=== PATIENT | male | born 1975 | race Caucasian/White ===

== ENCOUNTER 2019-04-10 17:55 | Outpatient (REF) | payer OTHER, SELFPAY ==
[2019-04-10 18:54] LABS: Anion Gap 10.8 mmol/L (3-11); BUN 19 mg/dL (7-18); CO2 26.2 mmol/L (21.0-32.0); CREATININE 0.85 mg/dL (0.70-1.30); Calcium 9.2 mg/dL (8.5-10.1); Chloride 105 mmol/L (98-107); Glucose 96 mg/dL (70-100); Sodium 142 mmol/L (136-145)
== END 2019-04-10 18:15 ==
LOC: NCHCN 17:55
PROVIDERS: PCP Physician Assistant; Visit Provider Nurse Practitioner Family
DX: I10 Essential (primary) hypertension (principal)
CPT/HCPCS: 80048

== ENCOUNTER 2019-11-07 12:41 | Emergency (ER) | payer OTHER, SELFPAY ==
[2019-11-07 12:48] VITALS: BP 163/103; PULSE 72; TEMP 36.8; O2SAT 96
[2019-11-07 13:29] LABS: Bilirubin Negative (Negative); Blood Trace-intact (Negative); Clarity Clear (Clear); Glucose Negative (Negative); Ketones Negative (Negative); Leukocyte Esterase Negative (Negative); Nitrite Negative (Negative); Urobilinogen 0.2 EU/dL (Up TO 0.2); pH 6.5 (5-8)
[2019-11-07 13:44] LABS: Epithelial Cells Rare HPF (Negative); RBC 0-2 HPF (0-2); WBC Negative HPF (0-5)
[2019-11-07 13:45] LABS: Bacteria Negative HPF (Negative); C & S Indicated? No; Casts Negative LPF (Negative); Crystals Negative HPF (Negative); Mucus Negative (Negative)
--- NOTE | 2019-11-07 13:54 | ED.GENADUL_ITS ---
Discharge Plan Disposition Patient Disposition: HOME Condition: Stable Discharge Details Chief Complaint: Nk/Back Pain Clinical Impression: Back pain Primary Care Provider: Marques Nelson ED Provider: Diomedes King Home Meds and New Rx's Prescriptions: No Action indomethacin 50 mg Capsule 50 mg PO BID PRNRF: 0 ibuprofen 600 mg Tablet 600 mg PO Q6H PRNRF: 0 losartan 100 mg Tablet 100 mg PO DAILY RF: 0 Discharge Instructions Instructions: Back Pain (ED) Additional Instructions: [id number] Tylenol and/or Motrin as directed for discomfort. Gentle stretching as tolerated. Cool and/or warm compresses every 2 hours for 20 minutes. Please watch for new or worsening symptoms and return to the ER for any concerns. I do strongly recommend talking with your primary care provider about outpatient imaging such as MRI, physical therapy, and referral to specialist if symptoms persist. Stand Alone Forms: Work Release Discharge Data Discharge Date/Time-TO BE ENTERED AT DEPARTURE: 11/07/19 14:20 Medical Decision Making 44-year-old gentleman with right-sided back pain since May 2019, worsens with movement, lifting or repetitive motion. Seen by his primary care provider on Tuesday, given a muscle relaxer without relief. He has never had any imaging for this. Examination is certainly consistent with musculoskeletal discomfort. There is no midline point tenderness, no recent trauma. Emergent x-ray imaging likely of little value. He has no radicular pain. We discussed more conservative therapy would be rest, gentle stretching, cool and/or warm compresses, [id number] Tylenol and/or Motrin. Outpatient physical therapy referral to his primary care provider, weight loss, and if symptoms persist outpatient MRI and/or referral to back specialist very well may be indicated. Patient is concerned that he has not had imaging thus far. I did explain to him that x-rays show bone but not disc space or soft tissue very well. Without trauma or midline point tenderness, x-ray likely little value. After this explanation he is comfortable with this plan and will talk with his primary care provider regarding outpatient MRI for further evaluation. Urinalysis obtained per protocol prior to my evaluation. Low suspicion for renal etiology. Lab Data Lab results reviewed: Yes I reviewed the patient's lab results. Lab results narrative: Laboratory Tests Range/Units 11/07/19 13:00 Urine Color (Yellow) Yellow Urine Clarity (Clear) Clear Urine pH (5-8) 6.5 Ur Specific [place] (1.005-1.025) 1.010 Urine Protein (Negative) mg/dL Negative Urine Ketones (Negative) mg/dL Negative Urine Blood (Negative) Trace-intact H Urine Nitrite (Negative) Negative Urine Bilirubin (Negative) Negative Urine Urobilinogen (Up TO 0.2) EU/dL 0.2 Ur Leukocyte Esterase (Negative) Negative Urine RBC (0-2) HPF 0-2 Urine WBC (0-5) HPF Negative Ur Epithelial Cells (Negative) HPF Rare Urine Crystals (Negative) HPF Negative Urine Bacteria (Negative) HPF Negative Urine Casts (Negative) LPF Negative Urine Mucus (Negative) Negative Ur Culture Indicated? No Urine Glucose (Negative) mg/dL Negative HPI General Mode of arrival: ambulatory . Date/Time Provider Initiated Documentation: 11/07/19 12:51 . Limitations to Documentation: no limitations . Information obtained by: patient and family . HPI Narrative: This is a 44-year-old gentleman who reports right sided chronic back pain that began in May. No obvious trauma although does do repetitive motion at work. Reports this episode began over the weekend although again no obvious trauma. He was seen by his primary care provider on Tuesday, given a muscle relaxer that has not helped. He is still using [id number] Motrin with no relief. He reports that there was no imaging done and he just simply wants to know what is going on. There is no radiation of his right back pain to his chest, abdomen, pelvis, down either leg. He denies any numbness, tingling, weakness. Denies chest pain or abdominal pain, nausea, vomiting. Denies any incontinence, bowel or bladder symptoms. Reports that the pain is moderate at rest but more severe with movement. He reports that the pain has never gone away completely since May however he does have days that are better or worse than others. Denies any hematuria, dysuria, pain in his testicles. Denies history of renal stone. Related Data Home Medications Medication Instructions Recorded Confirmed ibuprofen 600 mg PO Q6H PRN 11/07/19 11/07/19 indomethacin 50 mg PO BID PRN 11/07/19 11/07/19 losartan 100 mg PO DAILY 11/07/19 11/07/19 Allergies Allergy/AdvReac Type Severity Reaction Status Date / Time amoxicillin [From Augmentin] Allergy Unverified 11/07/19 12:52 clavulanic acid Allergy Unverified 11/07/19 12:52 [From Augmentin] General Stated Complaint: Nk/Back Pain SNOW: 4 Review of Systems Constitutional Constitutional: Denies fatigue, Denies fever(s) and Denies headache(s) ENT Ears, Nose, Mouth, and Throat: Denies headache(s) Cardiovascular Cardiovascular: Denies chest pain and Denies dyspnea Respiratory Respiratory: Denies cough and Denies dyspnea Gastrointestinal Gastrointestinal: Denies abdominal pain, Denies diarrhea, Denies nausea and [place] es vomiting Genitourinary Genitourinary: Denies hematuria, Denies difficulty urinating, Denies genital pain, Denies dysuria and Denies urinary incontinence Musculoskeletal Musculoskeletal: Reports back pain, Denies numbness and Denies tingling Integumentary/Breasts Skin/Breast: Denies rash Neurologic Neurologic: Denies headache(s), Denies numbness and Denies tingling Endocrine Endocrine: Denies fatigue [facility] Social History Smoking/Tobacco Use Status: Never Alcohol Intake: current Alcohol Intake frequency: a few times a month Drug use: Never Substance use type: does not use Do you feel safe at home: Yes Do you feel safe in your relationship?: Yes Exam Const General: cooperative, healthy appearing, comfortable and no acute distress Orientation: alert and awake [facility] Head: normal to inspection, normocephalic and atraumatic Mouth: moist mucous membranes Eyes Conjunctivae: conjunctivae normal Neck Neck: normal visual inspection, full ROM, trachea midline, supple and nontender Resp Effort & Inspection: normal respiratory effort and able to speak in complete sentences Auscultation: clear to auscultation bilaterally Cardio Rate: regular rate Rhythm: regular rhythm GI Inspection: normal to inspection Palpation: soft, not firm, no guarding and nontender Back/Spine/Pelvis Back: no CVA tenderness, No erythema and No warmth Cervical Spine: normal cervical lordosis Thoracic/Lumbar Spine: thoracic and lumbar spine normal to inspection, thoraco- lumbar ROM normal, pain with thoraco-lumbar ROM, paraspinal tenderness (Right thoracic region), No thoraco-lumbar ROM limited and No thoracic spinal tenderness (No midline point tenderness) Skin General skin exam: no rashes or lesions noted Neuro General: patient alert, patient awake, patient oriented x3, moves all extremities and no focal motor deficits Gait: normal gait Motor: muscle tone normal throughout and strength 5/5 throughout Sensory Exam: no sensory deficits noted Extrem General: normal to inspection, full ROM and capillary refill normal Psych Appearance: grossly normal Mental Status: mental status grossly normal Course Vital Signs Vital signs: Vital Signs Temperature 36.8 C 11/07/19 12:48 Pulse 72 11/07/19 12:48 Blood Pressure 163/103 H 11/07/19 12:48 Pulse Oximetry 96 11/07/19 12:48 Temperature 36.8 C 11/07/19 12:48 Temperature Source Temporal Artery Scan 11/07/19 12:48 Pulse 72 11/07/19 12:48 Respiratory Effort Non-Labored 11/07/19 12:51 Blood Pressure 163/103 H 11/07/19 12:48 Blood Pressure Position Sitting 11/07/19 12:48 Pulse Oximetry 96 11/07/19 12:48 Oxygen Delivery Method Room Air 11/07/19 12:48 Oxygen Flow Rate 0 11/07/19 12:48 Pain Level 9 11/07/19 12:48 Lab/Test Results Lab/Test Results: Laboratory Tests Range/Units 11/07/19 13:00 Urine Color (Yellow) Yellow Urine Clarity (Clear) Clear Urine pH (5-8) 6.5 Ur Specific [place] (1.005-1.025) 1.010 Urine Protein (Negative) mg/dL Negative Urine Ketones (Negative) mg/dL Negative Urine Blood (Negative) Trace-intact H Urine Nitrite (Negative) Negative Urine Bilirubin (Negative) Negative Urine Urobilinogen (Up TO 0.2) EU/dL 0.2 Ur Leukocyte Esterase (Negative) Negative Urine RBC (0-2) HPF 0-2 Urine WBC (0-5) HPF Negative Ur Epithelial Cells (Negative) HPF Rare Urine Crystals (Negative) HPF Negative Urine Bacteria (Negative) HPF Negative Urine Casts (Negative) LPF Negative Urine Mucus (Negative) Negative Ur Culture Indicated? No Urine Glucose (Negative) mg/dL Negative
== END 2019-11-07 14:20 | disposition home or self-care (01) ==
PROVIDERS: Emergency Provider Physician Assistant; PCP Physician Assistant
DX: M54.5 Low back pain (principal); G89.29 Other chronic pain
CPT/HCPCS: 99282; 81003; 81015

== ENCOUNTER 2020-10-17 10:52 | Outpatient (REF) | payer OTHER, SELFPAY ==
[2020-10-17 15:37] LABS: ALT 90 U/L (16-63); AST 47 U/L (15-37); Albumin 4.1 g/dL (3.4-5.0); Alkaline Phosphatase 100 U/L (46-116); Anion Gap 7.2 mmol/L (3-11); BUN 19 mg/dL (7-18); Bilirubin, Total 0.4 mg/dL (0.2-1.0); CO2 27.8 mmol/L (21.0-32.0); CREATININE 0.8 mg/dL (0.70-1.30); Calcium 9.3 mg/dL (8.5-10.1); Chloride 104 mmol/L (98-107); Glucose 119 mg/dL (74-106); LDL CHOLESTEROL 114 mg/dL (<100); Sodium 139 mmol/L (136-145)
[2020-10-17 15:39] LABS: Hemoglobin A1C 6.3 % (<5.7)
== END 2020-10-17 10:53 | disposition home or self-care (01) ==
LOC: NCHCN 10:52
PROVIDERS: PCP Physician Assistant; Visit Provider Physician Assistant
DX: R73.03 Prediabetes (principal); I10 Essential (primary) hypertension; E78.5 Hyperlipidemia, unspecified; Z68.43 Body mass index [BMI] 50.0-59.9, adult
CPT/HCPCS: 80053; 83721; 83036

== ENCOUNTER 2021-04-15 18:23 | Outpatient (REF) | payer OTHER, SELFPAY ==
[2021-04-15 20:24] LABS: Iron 53 ug/dL (65-175); Total Iron Binding Capacity 308 ug/dL (250-450); Transferrin Sat 17 % (20-55)
[2021-04-15 20:25] LABS: ALT 87 U/L (16-63); AST 49 U/L (15-37); Albumin 4.3 g/dL (3.4-5.0); Alkaline Phosphatase 89 U/L (46-116); Bilirubin, Direct 0.1 mg/dL (0.0-0.2); Bilirubin, Total 0.5 mg/dL (0.2-1.0); Total Protein 7.4 g/dL (6.4-8.2); Uric Acid 4.8 mg/dL (3.5-7.2)
[2021-04-17 11:29] LABS: Hepatitis C Ab w Rflx HCV PCR Negative (Negative)
== END 2021-04-15 18:24 | disposition home or self-care (01) ==
LOC: NCHCN 18:23
PROVIDERS: PCP Physician Assistant; Visit Provider Internal Medicine
DX: R73.03 Prediabetes (principal); Z11.59 Encounter for screening for other viral diseases
CPT/HCPCS: 80076; 86803; 83540; 83550; 84550

== ENCOUNTER 2022-06-08 21:42 | Outpatient (REF) | payer OTHER, SELFPAY ==
[2022-06-08 20:34] LABS: ALT 79 U/L (16-63); AST 30 U/L (15-37); Alkaline Phosphatase 109 U/L (46-116); Anion Gap 7.7 mmol/L (3-11); BUN 19 mg/dL (7-18); Bilirubin, Total 0.4 mg/dL (0.2-1.0); CO2 27.3 mmol/L (21.0-32.0); CREATININE 0.9 mg/dL (0.70-1.30); Calcium 9.3 mg/dL (8.5-10.1); Chloride 101 mmol/L (98-107); Estimated GFR 107.33 (mL/min/1.73m2); Glucose 144 mg/dL (74-106); Potassium 4.2 mmol/L (3.5-5.1); Sodium 136 mmol/L (136-145); Total Protein 7.6 g/dL (6.4-8.2)
== END 2022-06-08 21:43 | disposition home or self-care (01) ==
LOC: NCHCN 21:42
PROVIDERS: PCP Physician Assistant; Visit Provider Physician Assistant
DX: I10 Essential (primary) hypertension (principal); R73.03 Prediabetes; K76.0 Fatty (change of) liver, not elsewhere classified
CPT/HCPCS: 80053; 83036

== ENCOUNTER 2023-01-03 16:08 | Outpatient (CLI) | payer OTHER, SELFPAY ==
--- NOTE | 2023-01-03 14:45 | DI.RAD_ITS ---
Exam(s) XR HIP PELVIS ADULT BL EXAM: XR HIP PELVIS ADULT BL CLINICAL HISTORY: pain. TECHNIQUE: 2D digital imaging was performed. Five views. COMPARISON: No exams were available for comparison FINDINGS: BONES: No acute fracture is present. No bony destructive lesion is seen. JOINTS: No dislocation present. Right hip joint space is maintained. Severe narrowing and prominent periarticular spurring involving the left hip. Slight flattening of the superior femoral head. SI j oints and pubic symphysis unremarkable. SOFT TISSUE: Normal. IMPRESSION: Severe degenerative changes of the left hip. Right hip appears normal. DATA REPOSITORY: RADIATION DOSE DELIVERED:
== END 2023-01-03 16:09 | disposition home or self-care (01) ==
LOC: DIORS 16:08
PROVIDERS: PCP Physician Assistant; Referring Provider Physician Assistant; Visit Provider Physician Assistant
DX: M16.12 Unilateral primary osteoarthritis, left hip; M25.551 Pain in right hip
CPT/HCPCS: 73521

== ENCOUNTER 2023-03-31 02:33 | Outpatient (CLI) | payer OTHER, SELFPAY ==
[2023-03-31 11:51] LABS: HCT 47.7 % (40.0-50.0); HGB 15.9 g/dL (13.5-17.5); MCH 29.3 pg (27.0-33.0); MCHC 33.3 % (32.0-36.0); MCV 88 fL (80-95); MPV 9.8 fL (8.0-11.0); Platelet Count 217 10^3/uL (130-400); RBC 5.42 10^6/uL (4.36-5.78); RDW 12.8 % (11.8-14.1); RDW-SD 41.1 fL; WBC 7.56 10^3/uL (4.4-10.8)
[2023-03-31 12:02] LABS: Anion Gap 8.9 mmol/L (3-11); BUN 14 mg/dL (7-18); CO2 29.1 mmol/L (21.0-32.0); CREATININE 0.7 mg/dL (0.70-1.30); Calcium 9.7 mg/dL (8.5-10.1); Chloride 103 mmol/L (98-107); Glucose 99 mg/dL (74-106); Potassium 4.2 mmol/L (3.5-5.1); Sodium 141 mmol/L (136-145)
== END 2023-03-31 02:34 | disposition home or self-care (01) ==
LOC: LBO 02:34 → LBN 11:41
PROVIDERS: PCP Physician Assistant; Visit Provider Student in an Organized Health Care Education/Training Program
DX: M25.552 Pain in left hip (principal); M16.12 Unilateral primary osteoarthritis, left hip; Z01.818 Encounter for other preprocedural examination; Z01.812 Encounter for preprocedural laboratory examination
CPT/HCPCS: 80048; 85027

== ENCOUNTER 2023-04-06 05:50 | Day surgery (SDC) | payer OTHER, SELFPAY ==
[2023-04-06] VITALS (9 sets, daily range): BP systolic 95–128; BP diastolic 50–77; PULSE 55–74; RESP 16–20; TEMP 36.3–36.6; O2SAT 96–98; BMI 45.3
[2023-04-06] MEDS: Celecoxib 200 MG CAP 400 MG PO (06:35)
[2023-04-06] MEDS: Acetaminophen 500 MG TAB 1000 MG PO (06:35)
[2023-04-06] MEDS: Lactated Ringers 1,000 ML 80 ML IV (06:35)
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
--- NOTE | 2023-04-06 07:00 | DI.RAD_ITS ---
Exam(s) XR HIP LT IN OR EXAM: XR HIP LT IN OR CLINICAL HISTORY: total hip. TECHNIQUE: 2D and realtime digital imaging was performed. COMPARISON: CR XR HIP PELVIS ADULT BL from 01/03/2023 FINDINGS: A hard copy image shows placement of a left hip prosthesis. The alignment appears satisfactory. Please see procedure note for details. Fluoro time: 39.4seconds RADIATION DOSE DELIVERED: Ka,r=12.2 mGy
[2023-04-06] MEDS: ceFAZolin 3,000 MG in Normal Saline 100 ML 200 MG IV (07:56)
[2023-04-06] MEDS: fentaNYL 100 MCG/2 ML VIAL IVP ×2 (10:28→10:40)
--- NOTE | 2023-04-06 10:39 | W.ANESPOSTOP ---
Postoperative Evaluation Date, Time and Location Date Performed: 04/06/23 Time Performed: 10:39 Patient Location: PACU Vital Signs Most Recent Imported Vital Signs: Most Recent Vital Signs Temp Pulse Resp BP Pulse Ox 36.5 C 74 19 105/68 96 04/06/23 10:07 04/06/23 10:17 04/06/23 10:17 04/06/23 10:17 04/06/23 10:17 Pain Score Most Recent Pain Score: Most Recent Pain Score Pain Level 8 04/06/23 10:17 Assessment Mental Status: Awake (Alert & Oriented to Patient Baseline) Airway and Respiratory Function: Patent airway with normal (patient baseline) respiratory exam Cardiovascular Function: Hemodynamically Stable Hydration Status: Adequately Hydrated Nausea & Vomiting: No Nausea or Vomiting Pain: Pain is Moderate or Severe (VSS low normal and appropriate. ) Postoperative Pain Management: Pain being addressed with medication Peripheral Nerve Block: Patient did not receive a nerve block
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
--- NOTE | 2023-04-06 12:45 | PDOC.DSDIS_ITS ---
Date of service: 04/06/23 Time of Service: 12:45 Discharge Plan Disposition Patient Disposition: Home Condition: Good Discharge Details Reason For Visit: L THR Attending Provider: Esdras Nair Primary Care Provider: Angeles Gooden Home Meds and New Rx's Prescriptions: New celecoxib 200 mg capsule 200 mg PO BID Qty: 60 0RF aspirin 81 mg tablet,delayed release (DR/EC) 81 mg PO BID Qty: 60 0RF acetaminophen 500 mg tablet 1,000 mg PO TID Qty: 90 3RF pantoprazole 40 mg tablet,delayed release (DR/EC) 40 mg PO DAILY Qty: 30 0RF dexamethasone 4 mg tablet 4 mg PO DAILY Qty: 2 0RF oxycodone 5 mg tablet 5 mg PO Q4H MDD 6 tabs PRN (Reason: pain) Qty: 20 0RF Continued allopurinol 300 mg tablet 300 mg PO DAILY rosuvastatin [Crestor] 10 mg tablet 10 mg PO DAILY indomethacin 50 mg Capsule 50 mg PO BID PRN losartan 100 mg Tablet 100 mg PO DAILY Discontinued aspirin [Adult Aspirin Regimen] 81 mg tablet,delayed release (DR/EC) 81 mg PO DAILY ibuprofen 600 mg Tablet 600 mg PO Q6H PRN Discharge Instructions Additional Instructions: Total Hip Discharge Instructions Activity: The most important activity is to walk. You should try to take short walks a few times a day. You have no restrictions on movement or positioning, but do not try to force what you do. You will find some stiffness and weakness with hip flexion (lifting your knee). Do not try to strengthen this too early, continue to practice walking and stairs and this will come. - Outpatient physical therapy can be helpful to help return you to a normal gait and improve your flexibility and strength. This can start around 2 weeks. For some patients, it?s not necessary. Usually this is determined at the time of discharge or at the first post-operative visit. - You should wear the RUSSELL hose on both legs for 2 weeks. Dressing: Keep the surgical dressing in place for at least one week. After the first week it may be removed and replace with light gauze and tape or nothing. It may get wet after 3 days but avoid soaking the dressing. If it gets wet, just lightly pat dry. It is important to always keep some gauze between skin folds, especially when you are sitting. Spend some time with the wound exposed when you are lying flat as the incision does wrinkle onto itself. Medications: - You should take Tylenol and an anti-inflammatory Celebrex as your primary pain control medications. If the Celebrex is too expensive or not covered, please call the office for another alternative (Advil/Ibuprofen or Naproxen/Aleve). - You have been prescribed a stronger pain medication Oxycodone for breakthrough pain, take as needed as prescribed. - You have also been prescribed a stomach acid reduction agent Pantoprozole to help reduce stomach acid and reflux. - You have also been prescribed Decadron to help with post-operative nausea and pain. You will take this for two days starting tomorrow. - You will be taking Aspirin 81mg twice a day for DVT prevention unless instructed otherwise. - If you have constipation you should take Colace or Miralax (both [id number]). It takes most people 3-4 days to have a bowel movement. Follow-up: 2 weeks If you have any acute concerns or questions, please do not hesitate to contact the office at [phone]. You may contact Dr. Nair with any questions after hours through the hospital at [phone] or on his cell phone at [phone]. Stand Alone Forms: Anesthesia Discharge Inst., Vani Rawls (U) Referrals: Esdras Nair MD [ [facility] STAFF PHYSICIAN] - 04/21/23 11:00 am Equipment/Supplies: Walker Activity:: Activity as Tolerated Shower/Bathe:: 72 hours Diet:: As Tolerated Discharge Orders Discharge Orders: Discharge Order (Routine); Ordered 04/06/23 Ordered By: Esdras Nair
--- NOTE | 2023-04-06 17:01 | ROE_ITS ---
Date of service: 04/06/23 Time of Service: 10:15 Operative Note Operative Note DATE OF PROCEDURE: 04/06/23 PRE-OP DIAGNOSIS: Post-Traumatic Left Hip Osteoarthritis POST-OP DIAGNOSIS: same PROCEDURE: Left Anterior Total Hip Arthroplasty with Intraoperative Navigation SURGEON: Esdras Nair TOWBOAT CAPTAIN: Alexey Rosario ANESTHESIA TYPE: Spinal Refer to Anesthesia Record ESTIMATED BLOOD LOSS: 1,050 PATHOLOGY: none sent TOURNIQUET TIME: 0 COMPLICATIONS: None Patient was transported to: PACU Patient's condition: stable Implants: 1. Depuy [place] Acetabular Component, 54mm 2. Depuy Acetabular Liner, [id number] 3. Depuy Actis Standard Collared Femoral Stem, Size 4 4. Depuy Altrx Ceramic Femoral Head, Size 36+1.5mm Indications: I have seen Adolph in clinic for symptoms of hip arthritis, confirmed with radiographic findings. He has exhausted nonoperative methods and was having significant limitations in daily function and desired better function and less pain. I discussed the technical details of a hip replacement. I explained the risks of the procedure to include, but not limited to, bleeding, infection, pain, stiffness, fracture, damage to nerves and vessels, damage to muscles and tendons, loosening, instability, leg length inequality, need for repeat procedure, blood clot and cardiopulmonary demise. Despite these risks, Adolph elected to proceed. Findings: There was significant signs of arthritis throughout the hip. Large osteophytes are present surrounding the entirety of the femoral head neck as well as the acetabulum. There was 1 large loose piece of bone as well. Procedure Description: Adolph was greeted in the preoperative holding area where the correct side was identified and marked. The consent was reviewed with the patient and signed. The history and physical was updated. All questions were answered. He was taken back to the operating room. A spinal anesthestic was then administered. The feet were wrapped with cast padding and Coban and then placed into the boot liners and then into the boots. Care was taken to protect the skin and make sure the heels were fully down and the boots were stable. The patient was then positioned onto the HANA table. Both legs were held in a neutral position. SCDs were applied. The patient was then slid down onto a peroneal post. Prophylactic antibiotics in the form of Cefazolin were administered. 1g of Tranxemic Acid was given intravenously within 30 minutes of incision. The left leg was then prepped with Chloraprep and draped in a standard fashion. A second prep with Chloraprep was performed prior to placement of a shower-curtain type drape with Iodine impregnated skin protection. A timeout to confirm correct identity, side and site, procedure, allergies, anesthesia, and medical concerns was performed. An obliquely oriented incision was made starting lateral to the ASIS and running distal over the Tensor Fascia Jeri (TFL) muscle belly toward the fibular head, approximately 10cm. The skin and soft tissue was dissected sharply, through Symone?s fascia, and to the fascia of the TFL. With the fascia and superior border of the IT band identified, the fascia was incised with a new knife just above any perforators from the IT band. The TFL muscle belly was bluntly dissected away from the fascia and moved laterally. The fat between TFL and rectus was identified to ensure the dissection was not within the TFL. Blunt dissection created space between abductors and the capsule and retractor was placed over the lateral femoral neck. The fibers of the rectus femoris tendon were identified and these were freed from the anterior capsule. A second cobra retractor was placed around the medial femoral neck. The TFL was further retracted laterally to show the deep fascia. Careful dissection through this layer identified three main crossing vessels of the lateral femoral circumflex. These were cauterized in multiple locations and then cut without any noticeable bleeding. The TFL was further released bluntly from the deep fascia to expose anterior hip capsule and fat The Jay orthopaedic retractor was then placed beneath the TFL and against sartorius and medial soft tissues to protect and retract the soft tissues. A T-capsulotomy was then performed starting at the superior lateral acetabulum and moving distally to the intertrochanteric ridge. These capsular flaps were tagged with a No. 1 Ethibond and elevated from within. The capsular flaps were released to the shoulder of the lateral neck and to the lesser trochanter to give excellent visualization of the proximal femur. However, normal anatomy was obscured due to the multiple osteophytes surrounding the femoral head neck junction. A neck osteotomy was performed using an oscillating saw based on preoperative templates. This cut started in the shoulder and of the lateral neck and exited medially. The saw was at all times directed medially to avoid injury to the gr eater trochanter. Gross traction was applied to the leg and the osteotomy opened. The femoral head was removed with a corkscrew, making sure to protect the TFL on its exit. Traction was released after head removal. This was measured on the back table to determine the starting reamer size. Portions of the rectus obscuring visualization were minimally elevated off the superior acetabulum. An anterior retractor was placed over the anterior wall between capsule and labrum and attached to the Gripper retraction system. The femur was rotated to 90 degrees and medial capsule was fully released until the lesser trochanter was palpable and visible; the femur was returned to 30 degrees. A posterior retractor was placed similarly between capsule and labrum. This provided excellent visualization. The contents of the cotyloid fossa were removed with electrocautery and the labrum was removed with a knife. There was a notable floor osteophyte. There was significant chondromalacia of the s uperior acetabulum. Acetabular reaming began with a 48mm reamer. This first reaming was directed anterior to posterior and medial to get down to the true floor. This was inspected and reamed until the true floor was reached. The anterior retractor was then released and entry and exit was provided by traction on the capsular flaps. I then reamed sequentially up to a 54mm reamer where good fit was obtained. The larger reamers were oriented based on anatomical reference of the anterior and lateral albarran to ensure proper abduction and anteversion. Positioning and size was confirmed with the fluoroscopy. A 54mm Depuy [place] acetabular component was selected. The acetabulum was reamed around the periphery with the selected acetabular size to prevent a rim fit. The deep tissues were irrigated. The acetabular component was then impacted in a position of about 40-45 degrees of abduction and 15-20 degrees of anteversion, using the patient?s anatomy as the ultimate landmark. Fluoroscopy was used to confirm this. There was excellent data architect manager of the acetabular component and the inserting handle was removed. The acetabular liner, Depuy [id number] polyethylene liner, was inserted and lined up with the tines of the acetabular component. There was no soft tissue interposition. The liner was then impacted into position and confirmed to be well-seated. A portion of the venecia-articular cocktail was then injected around the acetabulum into the capsule and periosteum. This cocktail consisted of 123mg of Ropivacaine, 0.25mg of Epinephrine, 0.04mg of Clonidine, and 15mg of Ketorolac, diluted to 50cc. The leg was rotated to 120 degrees. Any remaining medial capsule was released until the lesser trochanter was easily palpable. A retractor was placed medially. The lateral capsule was further released into the shoulder to allow access to the greater trochanter. A Aleman retractor was placed over the greater trochanter which allowed the trochanter to flip in front of the capsule for excellent exposure. The leg was brought down into maximal extension and 20 degrees of adduction while ensuring there was no impingement on the acetabulum. Any remnant capsule within the trochanter was released. Piriformis and obturator externis were identified and protected. There was excellent access to the proximal femur. The lateral neck remnant was removed with a rongeur. A blunt canal probe was used to identify the canal and trajectory for later broaching. A box osteotome initiated the broach course. A small curved rasp and a curved curette were used to work laterally. Broaching then began with a starter Actis broach. This was inserted manually around the trochanter and into the canal before mallet blows. The broach was seated to a few millimeters below the cut level based on the neck cut and the preoperative template. Sequential broaching was continued with the Tappxse pneumatic broaching device until a tight fit was obtained with good rotational control of the femur. A trial standard neck was inserted along with a +5 trial head. The leg was brought out of extension and adduction and then reduced with traction and internal rotation. The leg was stable anteriorly in a position of 30 degrees of extension and 90 degrees of external rotation. Fluoroscopy was used to ensure there was no fracture and the stem was seated well. Leg lengths were checked with an AP pelvis and pelvic reference points. [employer] navigation system was used to confirm appropriate positioning and leg length and offset. Once content with the desired offset and leg lengths, the leg was brought back into extension, external rotation and adduction. The periosteum and surrounding tissue was injected with remaining portion of the venecia-articular cocktail. The proximal femur was irrigated as well as the deep tissues. The [employer] standard collared stem, size 4, was then manually inserted into the proximal femur making sure to control rotation. It was then malleted into position with light blows, giving breaks to allow bone expansion and decrease risk of fracture. The selected Depuy Altrx Ceramic Head, size 36+5mm, was then placed onto the clean and dry trunnion and secured with impaction onto the tapered fit. The leg was brought back out of extension and adduction and reduced with traction and internal rotation. Stability was confirmed with no shuck at 90 degrees of external rotation and 30 degrees of extension. No impingement through range of motion arc. Final x-ray images were obtained with fluoroscopy to confirm adequate positioning and no intraoperative fracture. The deep tissues were thoroughly irrigated with Surgiphor, betadine solution. This was allowed to sit in the wound for 3 minutes before being thoroughly irrigated out with normal saline. The capsule was then reapproximated with the previously placed Ethibond sutures. The TFL fascia was finally closed with a No. 2 Stratafix, barbed suture. Deep tissues were then reapproximated with 0 Vicryl and a running 2-0 Vicryl. The skin was closed with a running 4-0 Monocryl in a subcuticular fashion. This was reinforced with skin glue. A Mepilex silver dressing was applied. At the end of the case, all counts were correct. Adolph was transferred to the hospital bed without difficulty and suffering no apparent complication. He has a good prognosis. Physical therapy will start today and without restrictions, weight-bearing as tolerated. Aspirin 81mg BID will be used for DVT prophylaxis.
== END 2023-04-06 13:00 | disposition home or self-care (01) ==
PROVIDERS: PCP Physician Assistant; Visit Provider Student in an Organized Health Care Education/Training Program
PROC: (CPT 27130; principal; 2023-04-06 07:30)
DX: E11.9 Type 2 diabetes mellitus without complications; G47.33 Obstructive sleep apnea (adult) (pediatric); M16.32 Unilateral osteoarthritis resulting from hip dysplasia, left hip
CPT/HCPCS: 27130; 20985; 97161; 97530; 73501; J0690; J2250; J2405; J3010

== ENCOUNTER 2023-04-21 13:20 | Outpatient (CLI) | payer OTHER, SELFPAY ==
--- NOTE | 2023-04-21 10:45 | DI.RAD_ITS ---
Exam(s) XR HIP LT COMPLETE AP PELVIS EXAM: XR HIP LT COMPLETE AP PELVIS CLINICAL HISTORY: 1ST POST OP L YAIR. TECHNIQUE: 2D digital imaging was performed. Three images were obtained. AP pelvis and lateral view s were obtained. COMPARISON: XA XR HIP LT IN OR from 04/06/2023 FINDINGS: BONES: There are stable post operative changes present. No fracture or dislocation. JOINTS: The orthopedic hardware is in good position. No evidence of hardware loosening. SOFT TISSUE: Normal. IMPRESSION: Stable postoperative changes of a left total hip replacement. DATA REPOSITORY: RADIATION DOSE DELIVERED:
== END 2023-04-21 13:21 | disposition home or self-care (01) ==
LOC: DIORS 13:20
PROVIDERS: PCP Physician Assistant; Visit Provider Student in an Organized Health Care Education/Training Program
DX: Z96.642 Presence of left artificial hip joint (principal); Z47.1 Aftercare following joint replacement surgery
CPT/HCPCS: 73502

== ENCOUNTER 2023-06-08 16:33 | Outpatient (REF) | payer OTHER, SELFPAY ==
[2023-06-08 20:04] LABS: ALT 41 U/L (16-63); AST 29 U/L (15-37); Alkaline Phosphatase 103 U/L (46-116); Bilirubin, Direct 0.1 mg/dL (0.0-0.2); Bilirubin, Total 0.5 mg/dL (0.2-1.0); Total Protein 7.1 g/dL (6.4-8.2); Uric Acid 4.6 mg/dL (3.5-7.2)
== END 2023-06-08 16:34 | disposition home or self-care (01) ==
LOC: NCHCN 16:33
PROVIDERS: PCP Physician Assistant; Visit Provider Physician Assistant
DX: K76.0 Fatty (change of) liver, not elsewhere classified (principal); M10.9 Gout, unspecified
CPT/HCPCS: 80076; 84550

== ENCOUNTER 2024-04-06 11:34 | Outpatient (CLI) | payer OTHER, SELFPAY ==
--- NOTE | 2024-04-06 11:00 | DI.RAD_ITS ---
Exam(s) XR HIP LT AP LAT ONLY EXAM: XR HIP LT AP LAT ONLY CLINICAL HISTORY: annual F/U L YAIR. TECHNIQUE: 2D digital imaging was performed. COMPARISON: CR XR HIP LT COMPLETE AP PELVIS from 04/21/2023 FINDINGS: 3 views There is stable position alignment of the components of the left hip prosthesis. No evidence of frac ture or loosening. Also noted is a healed fracture of the ipsilateral left Inferior pubic ramus. IMPRESSION: Stable satisfactory appearance DATA REPOSITORY: RADIATION DOSE DELIVERED:
== END 2024-04-06 11:35 | disposition home or self-care (01) ==
LOC: DIORS 11:34
PROVIDERS: PCP Physician Assistant; Referring Provider Physician Assistant; Visit Provider Physician Assistant
DX: Z96.642 Presence of left artificial hip joint (principal); Z47.1 Aftercare following joint replacement surgery
CPT/HCPCS: 73502

== ENCOUNTER 2024-05-07 15:05 | Outpatient (REF) | payer OTHER, SELFPAY ==
[2024-05-07 19:44] LABS: Abs Immature Grans 0.02 10^3/uL (0.0-0.06); Absolute Basophil Count 0.05 10^3/uL (0.0-0.2); Absolute Eosinophil Count 0.17 10^3/uL (0.0-0.7); Absolute Lymphocyte Count 1.82 10^3/uL (1.2-3.4); Absolute Monocyte Count 0.52 10^3/uL (0.1-0.8); Absolute Neutrophil Count 3.37 10^3/uL (1.2-6.7); Basophils % 0.8 %; Eosinophils % 2.9 %; HCT 44.7 % (40.0-50.0); HGB 14.9 g/dL (13.5-17.5); Immature Grans % 0.3 %; Lymphocytes % 30.6 %; MCH 30.1 pg (27.0-33.0); MCHC 33.3 % (32.0-36.0); MCV 90 fL (80-95); Monocytes % 8.7 %; Neutrophils % 56.7 %; RBC 4.95 10^6/uL (4.36-5.78); RDW 12.3 % (11.8-14.1); RDW-SD 40.2 fL; WBC 5.95 10^3/uL (4.4-10.8)
[2024-05-07 19:56] LABS: Anion Gap 4.5 mmol/L (3-11); BUN 15 mg/dL (7-18); C-Reactive Protein < 0.50 mg/dL (<or=0.5); CO2 30.5 mmol/L (21.0-32.0); CREATININE 0.9 mg/dL (0.70-1.30); Calcium 9.3 mg/dL (8.5-10.1); Chloride 102 mmol/L (98-107); Estimated GFR 106.67 (mL/min/1.73m2); Glucose 165 mg/dL (74-106); Potassium 4.3 mmol/L (3.5-5.1); Sodium 137 mmol/L (136-145)
[2024-05-07 20:20] LABS: Diff Comment PLT Morph Reviewed; RBC Morphology Normal
== END 2024-05-07 15:06 | disposition home or self-care (01) ==
LOC: NCHCN 15:05
PROVIDERS: PCP Physician Assistant; Visit Provider Internal Medicine
DX: R10.9 Unspecified abdominal pain (principal)
CPT/HCPCS: 80048; 85025; 86140

== ENCOUNTER 2024-07-05 19:46 | Outpatient (REF) | payer OTHER, SELFPAY ==
[2024-07-05 19:39] LABS: ALT 49 U/L (16-63); AST 31 U/L (15-37); Albumin 4.2 g/dL (3.4-5.0); Alkaline Phosphatase 109 U/L (46-116); Bilirubin, Direct 0.1 mg/dL (0.0-0.2); Bilirubin, Total 0.45 mg/dL (0.2-1.0); Total Protein 7.5 g/dL (6.4-8.2)
== END 2024-07-05 19:47 | disposition home or self-care (01) ==
LOC: NCHCN 19:46
PROVIDERS: PCP Physician Assistant; Visit Provider Physician Assistant
DX: K76.0 Fatty (change of) liver, not elsewhere classified (principal)
CPT/HCPCS: 80076

== ENCOUNTER 2025-05-12 10:42 | Emergency (ER) | payer OTHER, SELFPAY ==
[2025-05-12 10:48] VITALS: BP 152/90; PULSE 74; RESP 14; TEMP 36.7; O2SAT 92
--- NOTE | 2025-05-12 11:00 | DI.RAD_ITS ---
Exam(s) XR PELVIS AP EXAM: XR PELVIS AP CLINICAL HISTORY: Hx Left hip Sx, Pain. TECHNIQUE: 2D digital imaging was performed.One images were obtained. COMPARISON: CR XR HIP LT COMPLETE AP PELVIS from 04/21/2023 FINDINGS: BONES: No acute fracture is present. No bony destructive lesion is seen. JOINTS: No dislocation present. The patient has a left total hip arthroplasty. The orthopedic hardware appears in good position. There is no evidence of hardware failure. SOFT TISSUE: Normal. IMPRESSION: 1. No acute fracture or dislocation is noted. 2. The preliminary [facility] report was reviewed. DATA REPOSITORY: RADIATION DOSE DELIVERED:
--- NOTE | 2025-05-12 11:00 | DI.RAD_ITS ---
Exam(s) XR LUMBAR SPINE COMPLETE EXAM: XR LUMBAR SPINE COMPLETE CLINICAL HISTORY: Lower back pain. TECHNIQUE: 2D digital imaging was performed of the lumbar spine. Five images were obtained. AP, lateral, right oblique, left oblique and L5-S1 spot views were obtained. COMPARISON: No exams were available for comparison FINDINGS: BONES: No fracture or destructive lesion. Endplate osteophytes are present. Degenerative changes of the facets are seen at L5-S1. There are portions of a left total hip arthroplasty which are visualized. There are grossly unremarkable. DISKS: There is mild disc space narrowing at L4-5 and L5-S1. There is also disc space narrowing is seen at T12-L1. ALIGNMENT: Lumbar spinal alignment is within normal limits. No spondylolysis or spondylolisthesis. SOFT TISSUE: Normal. IMPRESSION: 1. There is no acute abnormality. 2. The preliminary [facility] report was reviewed. DATA REPOSITORY: RADIATION DOSE DELIVERED:
--- NOTE | 2025-05-12 11:00 | DI.RAD_ITS ---
Exam(s) XR FEMUR LT EXAM: XR FEMUR LT CLINICAL HISTORY: Left hip pain. TECHNIQUE: 2D digital imaging was performed of the left femur. Four images were obtained. AP and lateral views were obtained. COMPARISON: CR XR HIP LT COMPLETE AP PELVIS from 04/21/2023 FINDINGS: BONES: No acute fracture is present. No bony destructive lesion is seen. There is an unremarkable left total hip arthroplasty. No lucencies are seen in or about the orthopedic hardware to suggest loosening. SOFT TISSUE: Normal. IMPRESSION: 1. There is no acute fracture or dislocation. 2. The preliminary [facility] report was reviewed. DATA REPOSITORY: RADIATION DOSE DELIVERED:
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
[2025-05-12] MEDS: Lidocaine 5% Patch 1 PATCH TP (12:55)
--- NOTE | 2025-05-12 13:31 | DI.VRAD_ITS ---
PROCEDURE INFORMATION: Exam: XR Pelvis Exam date and time: 05/12/2025 11:46 AM Age: 49 years old Clinical indication: Other: Left hip pain TECHNIQUE: Imaging protocol: Radiologic exam of the pelvis. Views: 1 or 2 view. COMPARISON: CR XR HIP LT COMPLETE AP PELVIS 04/21/2023 11:14 AM FINDINGS: Bones/joints: Bony mineralization is within normal limits. Left hip replacement is noted. There is no evidence of an acute fracture or dislocation. There is no plain film evidence of prosthetic loosening. The sacroiliac joints are symmetric Soft tissues: Soft tissues are unremarkable IMPRESSION: No acute findings. Dictated and Authenticated by: Sharri Cai MD. Orderin Ugo Hamilton MD
--- NOTE | 2025-05-12 13:32 | DI.VRAD_ITS ---
PROCEDURE INFORMATION: Exam: XR Left Femur Exam date and time: 05/12/2025 11:47 AM Age: 49 years old Clinical indication: Other: Left hip pain TECHNIQUE: Imaging protocol: Radiologic exam of the left femur. Views: 2 views. COMPARISON: CR XR PELVIS AP 05/12/2025 11:46 AM FINDINGS: Bones/joints: Bony mineralization is within normal limits. Left hip replacement is noted. There is no acute fracture dislocation or prosthetic loosening. Soft tissues: Soft tissues are unremarkable IMPRESSION: No acute findings. Dictated and Authenticated by: Sharri Cai MD. Orderin Ugo Hamilton MD
--- NOTE | 2025-05-12 13:35 | DI.VRAD_ITS ---
PROCEDURE INFORMATION: Exam: XR Lumbosacral Spine Exam date and time: 05/12/2025 11:51 AM Age: 49 years old Clinical indication: Other: Low back pain TECHNIQUE: Imaging protocol: Radiologic exam of the lumbosacral spine. Views: 4 or 5 views. COMPARISON: CR XR PELVIS AP 05/12/2025 11:46 AM FINDINGS: Bones/joints: Alignment is unremarkable. Bony mineralization is within normal limits. There is multilevel disc space narrowing. There are prominent spondylitic changes of the endplates, facet arthropathy is noted. There is no acute fracture nor significant decrease of vertebral body height within the lumbar spine. SI joints are symmetric. Left hip replacement seen at the edge of the [id number] Soft tissues: Unremarkable. IMPRESSION: Lumbar spondylosis, degenerative disc disease. No acute findings by plain film exam. If further evaluation of the intervertebral discs, canal, cord, foramina is indicated MR correlation recommended. Dictated and Authenticated by: Sharri Cai MD. Orderin Ugo Hamilton MD
[2025-05-12 14:05] VITALS: BP 140/78; PULSE 70; RESP 16; TEMP 37.1; O2SAT 97
== END 2025-05-12 14:19 | disposition home or self-care (01) ==
PROVIDERS: Emergency Provider Registered Nurse Emergency; PCP Physician Assistant
DX: M54.42 Lumbago with sciatica, left side (principal); M47.896 Other spondylosis, lumbar region
CPT/HCPCS: 99284; 99283; 73552; 72110; 72170

== ENCOUNTER 2025-06-27 17:35 | Outpatient (REF) | payer OTHER, SELFPAY ==
[2025-06-27 19:52] LABS: Anion Gap 11.1 mmol/L (3-11); BUN 15 mg/dL (7-18); CO2 25.9 mmol/L (21.0-32.0); Calcium 9.4 mg/dL (8.5-10.1); Chloride 99 mmol/L (98-107); Glucose 188 mg/dL (74-106); Potassium 4.1 mmol/L (3.5-5.1); Sodium 136 mmol/L (136-145)
== END 2025-06-27 17:36 | disposition home or self-care (01) ==
LOC: NCHCN 17:35
PROVIDERS: PCP Physician Assistant; Visit Provider Physician Assistant
DX: E11.9 Type 2 diabetes mellitus without complications (principal)
CPT/HCPCS: 80048